=== PATIENT | male | born 1995 | race Caucasian/White ===

== ENCOUNTER 2018-04-23 18:08 | Emergency (ER) | payer OTHER, SELFPAY ==
[2018-04-23 18:14] VITALS: BP 123/81; PULSE 82; RESP 16; TEMP 36.2; O2SAT 98
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
== END 2018-04-23 19:08 | disposition home or self-care (01) ==
LOC: ER 19:22
PROVIDERS: Emergency Provider Nurse Practitioner Family; PCP Nurse Practitioner Family
DX: Z20.5 Contact with and (suspected) exposure to viral hepatitis (principal); Y99.0 Civilian activity done for income or pay
CPT/HCPCS: 99281

== ENCOUNTER 2018-05-02 20:10 | Emergency (ER) | payer OTHER, SELFPAY ==
[2018-05-02 20:21] VITALS: BP 126/65; PULSE 81; RESP 16; TEMP 37.1; O2SAT 98
--- NOTE | 2018-05-02 20:38 | DI.RAD_ITS ---
SYMPTOMS/DIAGNOSIS: LEFT KNEE PAIN STATUS POST FALL LEFT KNEE: Three views. No priors. No bone or joint abnormalities identified. IMPRESSION: Negative examination.
--- NOTE | 2018-05-02 21:05 | ED.GENADUL_ITS ---
Discharge Plan Disposition Patient Disposition: HOME Condition: Stable Discharge Details Chief Complaint: Orthopedic Clinical Impression: Acute meniscal tear of left knee Primary Care Provider: Courtney Friedman ED Provider: Sriram Prajapati Home Meds and New Rx's Prescriptions: New ibuprofen [IBU] 600 mg tablet 600 mg PO QID PRN (Reason: pain) Qty: 20 RF: 0 Discharge Instructions Instructions: RICE Therapy (ED), Hinged Knee Brace (ED), Meniscus Tear (ED) Additional Instructions: Feel free to return to the emergency department for any new or worsening symptoms otherwise you should rest your left knee for the next 2-3 days and use crutches and then after 2-3 days you may slowly begin light weightbearing activities. You should not resume full activity until cleared by orthopedist. Stand Alone Forms: Work Release Referrals: Joby Love MD [ [facility] STAFF PHYSICIAN] - (Call the office for arrangement of follow-up appointment) Medical Decision Making Patient presenting to the emergency department for left knee pain. Patient states that he was at work when he fell on his lateral left knee and started having some pain and discomfort. Initially he thought he bruised it but over the course of the evening he noticed the knee locking and having more difficulty bending down or with any rotation of the knee the knee gave out. Physical exam shows lateral joint line tenderness, no laxity of the ligaments, difficulty with full extension of the knee and patient unable to perform any bending or rotational activities while weightbearing. Concern for meniscus tear but given that he is unable to fully weight-bear I do feel that patient requires radiological imaging for rule out of acute fracture. Review of radiological imaging and radiologist interpretation shows no acute fracture and no dislocation. Given that patient is having any buckling patient placed in a hinged knee brace and on crutches for the next 2-3 days then to slowly advance weightbearing activities if tolerated. 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 Patient placed upon orthopedic list for review of radiological imaging and follow-up otherwise patient given work note to excuse him from work for the next 3 days then he may begin light duty activities but he may not have full clearance of return to work until reassessed by orthopedist. After discussion of diagnosis and plan of care patient has no further needs, questions, or concerns and states clear understanding to return to the emergency department for any worsening symptoms. HPI General Mode of arrival: ambulatory . Date/Time Provider Initiated Documentation: 05/02/18 20:29 . Limitations to Documentation: no limitations . Information obtained by: patient . History of Present Illness 22 year old M presents to the emergency department with the chief complaint of lef tknee pain, described as moderate, with intensity rated at 5. Quality is described as aching, and is localized to the left and lower extremity. Patient reports no radiation. Patient started experiencing this hour(s) (7) and it has been constant. No relieving factors improve symptom(s), No exacerbating factors reported . Patient notes no other symptoms.. Patient did receive the following treatments prior to arrival, cold therapy Related Data Home Medications Medication Instructions Recorded Confirmed ibuprofen [IBU] 600 mg PO QID PRN #20 tab 05/02/18 Previous Rx's Medication Instructions Recorded ibuprofen [IBU] 600 mg PO QID PRN #20 tab 05/02/18 Allergies Allergy/AdvReac Type Severity Reaction Status Date / Time No Known Allergies Allergy Unverified 05/02/18 20:28 General Stated Complaint: Orthopedic CIERA: 4 Review of Systems Cardiovascular Denies chest pain, Denies edema and Denies dyspnea Respiratory Denies dyspnea Gastrointestinal Denies abdominal pain Musculoskeletal Reports as per HPI and Denies tingling Integumentary/Breasts Denies erythema and Denies rash Neurologic Denies sensory deficit and Denies tingling Exam Const General: cooperative, healthy appearing, comfortable and no acute distress Orientation: alert, awake and oriented x3 Resp Effort & Inspection: normal respiratory effort and able to speak in complete sentences Cardio Rate: regular rate Rhythm: regular rhythm Extrem Left lower extremity: hip/thigh Details: normal to inspection and knee Details: tenderness Location: of the lateral joint line; not of the patella, not of the pre-patellar area, not of the distal upper leg and not of the proximal tibia, abnormal ROM Details: pain with active ROM, pain with passive ROM, unable to extend lower leg actively and with range as follows (Patient has inability to fully extend the leg without significant amount of pain and inability to perform any deep knee bends or rotate leg with weightbearing activity.), knee ligament exam normal, Rodriguez's Test Details: negative medially and positive laterally and Apley's Test Details: negative; no swelling, no abrasions, no lacerations, no ecchymosis, no crepitus and no unusual warmth Course Vital Signs Temperature 37.1 C 05/02/18 20:21 Pulse 81 05/02/18 20:21 Respiratory Rate 16 05/02/18 20:21 Blood Pressure 126/65 05/02/18 20:21 Pulse Oximetry 98 05/02/18 20:21 Temperature 37.1 C 05/02/18 20:21 Temperature Source Temporal Artery Scan 05/02/18 20:21 Pulse 81 05/02/18 20:21 Respiratory Rate 16 05/02/18 20:21 Respiratory Effort 05/02/18 20:21 Blood Pressure 126/65 05/02/18 20:21 Pulse Oximetry 98 05/02/18 20:21 Oxygen Delivery Method Room Air 05/02/18 20:21 Oxygen Flow Rate 0 05/02/18 20:21 Pain Level 5 05/02/18 20:26
[2018-05-02] MEDS: Ibuprofen 600 MG TAB PO (21:19)
--- NOTE | 2018-05-02 21:47 | DI.VRAD_ITS ---
EXAM: XR Left Knee, 3 views CLINICAL HISTORY: 22 years old, male; Pain; Knee; Left; Patient HX: Left lateral knee pain after fall onto metal object today. TECHNIQUE: Three views of the left knee. COMPARISON: No relevant prior studies available. FINDINGS: Bones/joints: Unremarkable. No acute fracture. No dislocation. Soft tissues: Unremarkable. IMPRESSION: No displaced fractures identified. Dictated and Authenticated by: Luke Wilkins MD. Ordering:DANIELLE MAO MD
[2018-05-02 22:24] VITALS: BP 126/65; PULSE 81; RESP 16; TEMP 37.1; O2SAT 98
== END 2018-05-02 22:25 | disposition home or self-care (01) ==
PROVIDERS: Emergency Provider Nurse Practitioner Family; PCP Nurse Practitioner Family
DX: S83.207A Unspecified tear of unspecified meniscus, current injury, left knee, initial encounter (principal); W01.0XXA Fall on same level from slipping, tripping and stumbling without subsequent striking against object, initial encounter
CPT/HCPCS: 73562; 99283; 99282; E0114; L1830

== ENCOUNTER 2018-08-22 15:35 | Outpatient (REF) | payer OTHER, BC, SELFPAY ==
[2018-08-22 18:26] LABS: HCT 45.2 % (40.0-50.0); HGB 15.7 g/dL (13.5-17.5); Mean Corp. HGB Concentration 34.7 g/dL (32.0-36.0); Mean Corpuscular Hemoglobin 28.1 pg (27.0-33.0); Mean Corpuscular Volume 80.9 fL (80-95); Mean Platelet Volume 10.1 fL (8.0-11.0); Platelet Count 255 x1000/uL (130-400); RBC 5.59 m/cumm (4.50-6.00); RBC Distribution Width 12.9 % (11.8-14.1); White Blood Cell Count 5.15 k/cumm (4.4-10.8)
[2018-08-26 10:25] LABS: Hepatitis C Ab w Rflx HCV PCR Negative (NEGAT)
[2018-08-26 14:10] LABS: Chlamydia Result Negative; GC Result Negative
== END 2018-08-22 15:55 ==
LOC: NCHCN 15:35
PROVIDERS: PCP Nurse Practitioner Family; Visit Provider Nurse Practitioner Family
DX: D70.9 Neutropenia, unspecified (principal); Z20.5 Contact with and (suspected) exposure to viral hepatitis; Z11.3 Encounter for screening for infections with a predominantly sexual mode of transmission; Z11.59 Encounter for screening for other viral diseases
CPT/HCPCS: 85027; 86803; 87491; 87591

== ENCOUNTER 2019-04-16 02:38 | Outpatient (CLI) | payer BC, SELFPAY ==
--- NOTE | 2019-04-16 | PFT_ITS ---
PULMONARY FUNCTION TEST REPORT Patient - Rell Khan DATE OF SERVICE April 16, 2019 REQUESTING PROVIDER Courtney Friedman NP INTERPRETATION OF STUDY Spirometry shows no evidence of obstructive airways disease. No bronchodilator testing was carried out. LUNG VOLUMES - Lung volumes show no evidence of restriction. DIFFUSION CAPACITY- Slightly elevated. AIRWAY RESISTANCE - Normal. IMPRESSION Isolated slightly elevated diffusion capacity, this can be seen in asthma. If the dx of asthma is in question proceeding with Methacholine challenge testing may prove to be useful. Clinical correlation recommended. Gina Middleton M.D. BECKY/ T- 04/17/2019
== END 2019-04-16 02:58 ==
PROVIDERS: PCP Nurse Practitioner Family; Visit Provider Nurse Practitioner Family
DX: J45.20 Mild intermittent asthma, uncomplicated (principal)
CPT/HCPCS: 94150; 94726; 94729; 94010

== ENCOUNTER 2019-08-27 16:13 | Outpatient (CLI) | payer BC, SELFPAY ==
--- NOTE | 2019-08-27 | DI.RAD_ITS ---
EXAM: XR CHEST 2V PA LATERAL CLINICAL HISTORY: COUGH, R05 TECHNIQUE: 2D digital imaging was performed. COMPARISON: No exams were available for comparison FINDINGS: The cardiac and mediastinal contours have a normal appearance. The lungs are well inflated and clear . No infiltrate, effusion or pneumothorax is seen. No spine or rib fracture is identified. IMPRESSION: Negative chest x-ray.
== END 2019-08-27 16:33 ==
PROVIDERS: PCP Nurse Practitioner Family; Visit Provider Nurse Practitioner Family
DX: R05 Cough (principal)
CPT/HCPCS: 71046